=== PATIENT | female | born 1980 | race Hispanic/Latino ===

== ENCOUNTER 2020-07-25 14:41 | Outpatient (CLI) | payer BC | END 2020-07-25 14:42 | disposition home or self-care (01) | LOC: CSHULT 14:41 | PROVIDERS: ATTEND Urology | DX: N30.20 Other chronic cystitis without hematuria (principal); N28.89 Other specified disorders of kidney and ureter | CPT/HCPCS: 76770 ==

== ENCOUNTER 2024-11-19 10:50 | Outpatient (CLI) | payer BC | END 2024-11-19 10:51 | disposition home or self-care (01) | LOC: CSHULT 10:50 | PROVIDERS: ATTEND Family Medicine | DX: N30.90 Cystitis, unspecified without hematuria (principal); Z87.448 Personal history of other diseases of urinary system | CPT/HCPCS: 76770 ==